=== PATIENT | male | born 1975 | race Hispanic/Latino ===

== ENCOUNTER 2017-01-14 10:58 | Observation (INO) | payer OTHER, SELFPAY ==
[~2017-01-14 10:58] MED LIST: ISOVUE-370 76%-LOCM 1 ML ONE
[2017-01-14 11:23] LABS: #Basophils 0.1 thou/uL (0.0-0.2); #Eosinphils 0.2 thou/uL (0.0-0.7); #Lymphocytes 2.1 thou/uL (1.20-3.40); #Monocytes 0.7 thou/uL (0.11-0.59); #Neutrophils 7.5 thou/uL (1.40-6.50); %Basophils 1.4 % (0.0-1.0); %Eosinophils 1.7 % (0.0-10.0); %Lymphocytes 19.7 % (21.0-51.0); Hematocrit 48.6 % (42.0-52.0); Mean Platelet Volume 8.9 fL (7.4-10.4); Red Blood Cell (RBC) Count 5.46 mill/uL (4.70-6.10); White Blood Cell (WBC) Count 10.6 thou/uL (4.8-10.8)
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
[2017-01-14 11:51] LABS: ALT (SGPT) 45 U/L (8-55); AST (SGOT) 44 U/L (5-34); Alkaline Phosphatase 96 U/L (40-150); Anion Gap 16 mmol/L (10-20); BUN (Urea Nitrogen) 11 mg/dL (8.9-20.6); Bilirubin, Total 0.8 mg/dL (0.2-1.2); Calc. Creatinine Clearance 0 mL/min (70-130); Calcium 9.6 mg/dL (7.8-10.44); Carbon Dioxide 22 mmol/L (22-29); Chloride 104 mmol/L (98-107); Estimated GFR-MDRD Greater than 90; Globulin 3.4 g/dL (2.4-3.5); Protein, Total 7.8 g/dL (6.0-8.3)
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
[2017-01-14] MEDS ORDERED: Adacel (T-DAP) 0.5 ML VIAL ONE (12:05)
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
[2017-01-14] MEDS ORDERED: Ondansetron ODT 4 MG TAB PO PRN (12:19)
[2017-01-14] MEDS ORDERED: Morphine Sulfate 2 MG/ML SYRINGE IVP PRN (12:19)
[2017-01-14] MEDS ORDERED: Ondansetron HCl/PF 4 MG/2 ML Vial IVP PRN ×2 (12:19→16:41)
[2017-01-14] MEDS ORDERED: Dextrose 5% in Water 1,000 ML IV PRN (12:19)
[2017-01-14] MEDS ORDERED: Dextrose 50% Abboject 50 ML SYRINGE SLOW IVP PRN (12:19)
[2017-01-14] MEDS ORDERED: Ketorolac Tromethamine 30 MG/ML VIAL ONE ×2 (12:21→14:19)
[2017-01-14] MEDS ORDERED: Morphine Sulfate 2 MG/ML SYRINGE ONE (12:33)
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
[2017-01-14] MEDS ORDERED: Midazolam HCl 2 mg/2 ml Vial ONE (13:43)
[2017-01-14] MEDS ORDERED: Fentanyl 100 MCG/2 ML VIAL ONE (13:43)
[2017-01-14] MEDS ORDERED: Neomycin-Polymyxin 1 ML AMP ONE ×2 (13:48→15:26)
[2017-01-14] MEDS ORDERED: Bupivacaine PF 0.5% 30 ML VIAL ONE (13:48)
[2017-01-14] MEDS ORDERED: Lidocaine 1% PF 5 ML VIAL ONE (14:19)
[2017-01-14] MEDS ORDERED: Ondansetron HCl/PF 4 MG/2 ML Vial ONE (14:19)
[2017-01-14] MEDS ORDERED: Propofol 200 MG/20 ML VIAL ONE (14:19)
[2017-01-14] MEDS ORDERED: Dexamethasone 20 MG/5 ML VIAL ONE (14:19)
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
--- NOTE | 2017-01-14 15:59 | RAD ---
RIGHT ANKLE 2 VIEWS: HISTORY: Posterior and medial malleolar fractures of the right ankle. FINDINGS/IMPRESSION: Two spot fluoroscopic intraoperative images of the right ankle demonstrate interval reduction and in ternal fixation of the medial and posterior malleolar fractures noted on the earlier exam of same da te (11:05 a.m.). Anatomic alignment has been restored. POS: [facility]
[2017-01-14] MEDS ORDERED: Promethazine HCl 25 MG/ML VIAL SLOW IVP PRN (16:41)
[2017-01-14] MEDS ORDERED: Promethazine HCl 25 MG/ML VIAL IM PRN (16:41)
[2017-01-14] MEDS: Sodium Chloride 0.9% 1,000 ML IV SCH (18:07)
[2017-01-14] MEDS: Ketorolac Tromethamine 30 MG/ML VIAL IVP SCH (18:09)
[2017-01-14] MEDS ORDERED: Cyclobenzaprine 10 MG TAB PO PRN (18:30)
[2017-01-14] MEDS: traMADol HCl 50 MG TAB PO SCH (19:07)
[2017-01-14] MEDS: Gabapentin 300 MG CAP PO SCH (21:02)
[2017-01-14] MEDS: Famotidine/PF 20 mg/2ml Vial SLOW IVP SCH (21:03)
[2017-01-15] MEDS: Sodium Chloride 0.9% 1,000 ML IV SCH ×3 (00:17→16:43)
[2017-01-15] MEDS: Acetaminophen 500 MG TAB PO SCH ×5 (00:19→23:58)
[2017-01-15] MEDS: traMADol HCl 50 MG TAB PO SCH ×5 (00:19→23:59)
[2017-01-15] MEDS: Ketorolac Tromethamine 30 MG/ML VIAL IVP SCH ×5 (00:20→23:58)
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
[2017-01-15 06:47] LABS: #Lymphocytes 1.3 thou/uL (1.20-3.40); #Monocytes 0.9 thou/uL (0.11-0.59); %Basophils 0.3 % (0.0-1.0); %Eosinophils 0.1 % (0.0-10.0); %Lymphocytes 11.3 % (21.0-51.0); %Monocytes 8.3 % (0.0-10.0); Hematocrit 39.6 % (42.0-52.0); Red Blood Cell (RBC) Count 4.37 mill/uL (4.70-6.10); White Blood Cell (WBC) Count 11.2 thou/uL (4.8-10.8)
[2017-01-15 07:05] LABS: Anion Gap 13 mmol/L (10-20); BUN (Urea Nitrogen) 15 mg/dL (8.9-20.6); Calc. Creatinine Clearance 134 mL/min (70-130); Calcium 8.4 mg/dL (7.8-10.44); Carbon Dioxide 23 mmol/L (22-29); Estimated GFR-MDRD Greater than 90; Magnesium 2.2 mg/dL (1.6-2.6); Phosphorus 3.3 mg/dL (2.3-4.7)
[2017-01-15 07:56] LABS: Chloride 107 mmol/L (98-107)
[2017-01-15] MEDS: Famotidine/PF 20 mg/2ml Vial SLOW IVP SCH ×2 (08:33→20:44)
[2017-01-15] MEDS: Gabapentin 300 MG CAP PO SCH ×3 (08:33→20:44)
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
[2017-01-15] MEDS ORDERED: traMADol HCl 50 MG TAB PO SCH (18:45)
[2017-01-16] MEDS: traMADol HCl 50 MG TAB PO SCH ×2 (05:55→11:20)
[2017-01-16] MEDS: Acetaminophen 500 MG TAB PO SCH ×2 (05:55→11:19)
[2017-01-16] MEDS: Ketorolac Tromethamine 30 MG/ML VIAL IVP SCH ×2 (05:56→11:20)
[2017-01-16] MEDS: Famotidine/PF 20 mg/2ml Vial SLOW IVP SCH (09:00)
[2017-01-16] MEDS: Gabapentin 300 MG CAP PO SCH ×2 (09:00→14:54)
[2017-01-16 12:43] VITALS: BP 129/89; TEMP 97.8
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
[2017-01-20] MEDS ORDERED: Ibuprofen 800 MG TAB PO SCH (06:00)
== END 2017-01-16 16:35 | disposition home or self-care (01) ==
LOC: ERS 10:58 → SDC 13:43 → SURG A 13:50
PROVIDERS: ADMIT Orthopaedic Surgery; ATTEND Orthopaedic Surgery
PROC: 0QSG04Z Reposition Right Tibia with Internal Fixation Device, Open Approach (ICD-10-PCS; principal; 2017-01-16)
DX: S82.51XA Displaced fracture of medial malleolus of right tibia, initial encounter for closed fracture (principal); S22.20XA Unspecified fracture of sternum, initial encounter for closed fracture; S27.322A Contusion of lung, bilateral, initial encounter; S30.1XXA Contusion of abdominal wall, initial encounter; V43.62XA Car passenger injured in collision with other type car in traffic accident, initial encounter; Y92.411 Interstate highway as the place of occurrence of the external cause; Y99.0 Civilian activity done for income or pay
CPT/HCPCS: 27808; 36415; 70450; 71260; 72125; 74177; 76001; 80048; 80053; 83735; 84100; 85025; 85730; 86850; 86900; 86901; 90471; 90715; 93005; 94640; 96361; 96374; 96375; 96376; A4216; C1713; G0378; G0390; G8978-GP-CK; G8979-GP-CI; J1100; J1885; J2001; J2250; J2270; J2405; J2704; J3010; J7620; S0020; S0028